=== PATIENT | female | born 1985 | race Hispanic/Latino ===

== ENCOUNTER 2018-02-18 14:31 | Emergency (ER) | payer BC, OTHER ==
[~2018-02-18 14:31] MED LIST: ISOVUE-370 76%-LOCM 1 ML ONE
[2018-02-18 15:02] LABS: #Lymphocytes 2.5 thou/uL (1.20-3.40); #Monocytes 0.6 thou/uL (0.11-0.59); #Neutrophils 7.6 thou/uL (1.40-6.50); %Basophils 0.4 % (0.0-1.0); %Eosinophils 0.4 % (0.0-10.0); %Lymphocytes 23.5 % (21.0-51.0); %Monocytes 5.5 % (0.0-10.0); %Neutrophils 70.3 % (42.0-75.0); Hemoglobin 12.9 g/dL (12.0-16.0); Mean Corpuscular HGB CONC 33.9 g/dL (32.0-36.0); Mean Corpuscular Hemoglobin 28.9 pg (27.0-31.0); Mean Corpuscular Volume 85.2 fL (78.0-98.0); Mean Platelet Volume 8.4 fL (7.4-10.4); Platelet Count 310 thou/uL (130-400); RBC Distribution Width 12.5 % (11.5-14.5); Red Blood Cell (RBC) Count 4.45 mill/uL (4.20-5.40); White Blood Cell (WBC) Count 10.8 thou/uL (4.8-10.8)
--- NOTE | 2018-02-18 15:20 | RAD ---
FRONTAL VIEW CHEST: COMPARISON: 10/13/15. INDICATION: Cardiac palpitations. FINDINGS: Lungs are clear. No effusion or pneumothorax. Cardiac silhouette is normal in size. IMPRESSION: No focal consolidation. POS: [facility]
[2018-02-18 15:27] LABS: ALT (SGPT) 19 U/L (8-55); AST (SGOT) 20 U/L (5-34); Albumin 4.4 g/dL (3.5-5.0); Alkaline Phosphatase 69 U/L (40-150); Anion Gap 15 mmol/L (10-20); BUN (Urea Nitrogen) Less than 4 mg/dL (7.0-18.7); Bilirubin, Total 0.4 mg/dL (0.2-1.2); CK (CPK) 157 U/L (29-168); CKMB 0.9 ng/mL (0-6.6); Calc. Creatinine Clearance 0 mL/min (70-130); Calcium 9.3 mg/dL (7.8-10.44); Carbon Dioxide 24 mmol/L (22-29); Chloride 104 mmol/L (98-107); Estimated GFR-MDRD Greater than 90; Globulin 3.6 g/dL (2.4-3.5); Glucose 93 mg/dL (70-105); Potassium 3.5 mmol/L (3.5-5.1); Sodium 139 mmol/L (136-145); Troponin I Less than 0.010 ng/mL (< 0.028)
[2018-02-18 15:52] LABS: Bilirubin Negative (Negative); Blood, Urine Negative (Negative); Clarity CLOUDY (Clear); Glucose, Urine (Dipstick) Negative (Negative); Leukocyte Large (Negative); Nitrite Negative (Negative); Protein, Urine (Dipstick) Trace mg/dL (Neg-Trace); Specific Gravity, Urine 1.017 (1.002-1.036); Urobilinogen 0.2 mg/dL (0.2-1.0)
[2018-02-18 15:54] LABS: Bacteria/HPF Rare-Few HPF (None Seen); Pathc Cast-AUWi Flag 1.01 (0-2.49)
[2018-02-18 15:57] LABS: Pregnancy Test - Urine (BHCG) Negative (Negative); Pregu Control Background? CLEAR/WHITE (CLR/WHITE); Pregu Control Bar Appear? YES (CONTROL BAR); Specific Gravity 1.017 (1.002-1.036)
[2018-02-18 15:58] LABS: Hyaline Casts/LPF NONE SEEN LPF (0-3 Hyaline)
--- NOTE | 2018-02-18 16:52 | CT ---
CTA CHEST WITH 3D VOLUME RENDERING: Date: 02/18/18 CLINICAL HISTORY: Chest pain. Elevated D-Dimer. FINDINGS: There is no large, central filling defect of pulmonary arterial system. No lobar consolidation, effus ion, or pneumothorax. There is minimal subpleural ground-glass nodularity of the posterior right lung base, too small to definitively characterize. Thoracic aorta is nonaneurysmal. IMPRESSION: No large, central pulmonary embolus. POS: [id number]
== END 2018-02-18 17:25 | disposition home or self-care (01) ==
LOC: ERS 14:31
DX: R00.2 Palpitations (principal); N30.00 Acute cystitis without hematuria
CPT/HCPCS: 71045; 71275; 80053; 81003; 81015; 81025; 82553; 83880; 84443; 84484; 85025; 85379; 93005; 96360

== ENCOUNTER 2018-07-02 05:28 | Emergency (ER) | payer OTHER, SELFPAY | END 2018-07-02 05:53 | disposition home or self-care (01) | LOC: ERS 05:28 | DX: L25.9 Unspecified contact dermatitis, unspecified cause (principal) | CPT/HCPCS: 99282 ==

== ENCOUNTER 2018-07-04 17:41 | Emergency (ER) | payer SELFPAY ==
[2018-07-04] MEDS ORDERED: Dexamethasone 10 MG/ML VIAL ONE (19:25)
== END 2018-07-04 19:38 | disposition home or self-care (01) ==
LOC: ERS 17:41
DX: L25.9 Unspecified contact dermatitis, unspecified cause (principal)
CPT/HCPCS: 99284; J1100